=== PATIENT | female | born 1995 | race Caucasian/White ===

== ENCOUNTER 2021-12-29 11:59 | Outpatient (CLI) | payer OTHER, SELFPAY ==
--- NOTE | 2021-12-29 12:15 | CRLHL7_ITS ---
For Patients: As a result of the Century Cures Act, medical imaging exams and procedure reports are released immediately into your electronic medical record. You may view this report before your referring provider. If you have questions, please contact your health care provider. INDICATION: Dating and viability. TECHNIQUE: Ultrasound OB pelvis transabdominal and transvaginal. Real-time mcbride-scale imaging of the pelvis was performed. Color Doppler was performed on the ovaries with no spectral wave analysis. COMPARISON: None. FINDINGS: No definite gestational sac visualized. Possible 2.6 mm gestational sac in the endometrium which would correspond to 4 week 6 day gestational age. No identifiable pole or yolk sac. Endometrium measures 11 millimeters. No uterine masses. Right ovary measures 4.2 x 2.6 x 3.0 cm. Corpus luteum cyst on the right measuring 2.6 x 2.2 x 1.9 cm. Normal color flow. Left ovary measures 3.7 x 1.6 x 1.7 cm. Normal color flow. Mild pelvic free fluid. IMPRESSION: No definite intrauterine gestational sac. Questionable small intrauterine gestational sac visualized with no definite yolk sac or pole. The questionable gestational sac measures 2.6 mm which would correspond to 4 weeks 6 days. Recommend correlation with beta HCG and follow-up ultrasound if indicated. Right corpus luteum cyst. Mild nonspecific simple appearing pelvic free fluid. Dictated by Fransisco Vu MD @ 12/29/2021 2:22:00 PM (Electronically Signed)
== END 2021-12-29 12:00 | disposition home or self-care (01) ==
PROVIDERS: PCP Emergency Medicine; Visit Provider Registered Nurse
DX: Z34.91 Encounter for supervision of normal pregnancy, unspecified, first trimester (principal); Z3A.01 Less than 8 weeks gestation of pregnancy
CPT/HCPCS: 76817

== ENCOUNTER 2022-01-12 15:54 | Outpatient (CLI) | payer OTHER, SELFPAY ==
--- NOTE | 2022-01-12 16:00 | CRLHL7_ITS ---
For Patients: As a result of the Century Cures Act, medical imaging exams and procedure reports are released immediately into your electronic medical record. You may view this report before your referring provider. If you have questions, please contact your health care provider. INDICATION: Confirm dating and viability. First trimester scan, establish dates. COMPARISON: December 29, 2021. TECHNIQUE: Real-time mcbride-scale imaging of the pelvis was performed. FINDINGS: Sonographic imaging demonstrates a single living intrauterine gestation. The embryo demonstrates a regular cardiac rate measuring 126 beats per minute. The embryo`s crown-rump length measurement of 0.81 cm corresponds to a gestational age of 6 weeks 5 days with a sonographic due date of September 02, 2022. There is a normal-appearing yolk sac measuring 2.6 mm. There are no gross abnormalities noted within the embryo at this early state of development. The placenta has not yet developed. The gestational sac has a normal appearance. Trace perigestational/subchorionic hemorrhage inferior to the gestational sac measuring 13 x 7 x 18 mm. The amount of fluid within the sac appears appropriate for gestational age. The cervix is closed. The myometrium appears normal. The ovaries are of normal size. The right ovary measures 4.0 x 2.1 x 3.1 cm and contains a corpus luteum cyst of measuring 3.5 x 1.6 x 2.2 cm. The left ovary measures 3.4 x 1.7 x 2.2 cm. There are no suspicious fluid collections noted in the cul-de-sac. When compared to the prior study there has been interval maturation/progression with an intrauterine gestational sac as well as the visualization of a yolk sac and a pole. IMPRESSION: Normal first trimester OB ultrasound exam. Gestational age calculated at 6 weeks 5 days with a sonographic due date of September 02, 2022. Dictated by Eris Wilkinson MD @ 01/13/2022 9:03:12 AM (Electronically Signed)
== END 2022-01-12 15:55 | disposition home or self-care (01) ==
LOC: US 15:55
PROVIDERS: PCP Emergency Medicine; Visit Provider Registered Nurse
DX: Z34.91 Encounter for supervision of normal pregnancy, unspecified, first trimester (principal); Z3A.01 Less than 8 weeks gestation of pregnancy
CPT/HCPCS: 76817

== ENCOUNTER 2022-01-12 17:06 | Outpatient (CLI) | payer OTHER, SELFPAY ==
[2022-01-12 21:27] LABS: Hepatitis B Surface Antigen* Negative (Negative)
[2022-01-12 21:35] LABS: HIV 1/2/P24 Combo Screen* Negative (Negative)
[2022-01-12 21:44] LABS: Hepatitis C Virus Antibody* Negative (Negative)
[2022-01-12 22:39] LABS: Chlamydia DNA Amplified* NOT DETECTED (No Detected); GC DNA Amplified* NOT DETECTED (No Detected)
[2022-01-14 10:21] LABS: Rapid Plasma Reagin (RPR) Non Reactive (Non Reactive)
[2022-01-14 21:09] LABS: Rubella Antibody IgG 32.5 IU/mL
== END 2022-01-12 17:07 | disposition home or self-care (01) ==
PROVIDERS: Registered Nurse; PCP Emergency Medicine; Visit Provider Physician Assistant
DX: Z34.91 Encounter for supervision of normal pregnancy, unspecified, first trimester (principal); Z12.4 Encounter for screening for malignant neoplasm of cervix; Z3A.01 Less than 8 weeks gestation of pregnancy
CPT/HCPCS: 86592; 86703; 86762; 86787; 86803; 86850; 86900; 86901; 87086; 87340; 87491; 87591; 87624; 88175

== ENCOUNTER 2022-04-19 08:43 | Outpatient (CLI) | payer OTHER, SELFPAY ==
--- NOTE | 2022-04-19 08:45 | CRLHL7_ITS ---
For Patients: As a result of the Century Cures Act, medical imaging exams and procedure reports are released immediately into your electronic medical record. You may view this report before your referring provider. If you have questions, please contact your health care provider. INDICATION: Evaluate anatomy. COMPARISON: 01/12/2022 TECHNIQUE: Real time mcbride scale imaging of the fetus was performed as well as color Doppler analysis of the umbilical vessels. FINDINGS: Sonographic imaging demonstrates a single living intrauterine gestation. Fetus demonstrates a regular cardiac rate of 157 beats per minute. Fetus has a josh breech position. The placenta lies anteriorly without evidence of placenta previa. The edge of the placenta is located 5.6 cm from the internal cervical os. Amniotic fluid volume appears normal. Single deepest vertical pocket: 4.2 cm. The cervix is closed and measures 3.4 cm in length. The composite ultrasound gestational age is calculated at 21 weeks 3 days with an estimated sonographic due date of 08/27/2022. The estimated weight is 444 grams which lies at the greater than 97th %. The following biometric measurements were obtained: Biparietal diameter: 5.0 cm/21 weeks 2 days 84th% Head circumference: 19.1 cm/21 weeks 2 days 85th% Abdominal circumference: 16.9 cm/22 weeks 0 days 90th% Femur length: 3.6 cm/21 weeks 4 days 83rd% The HC/AC ratio measures: 1.13 range (1.06-1.24) On anatomic survey, there is a normal appearance of the cerebral ventricles, cavum septi pellucidi, cisterna magna and cerebellum. The nose, lips, and facial profile appear normal. The cervical, thoracic and lumbar spine are well visualized and appear normal. There is a normal four-chamber heart view and the left and right ventricular outflow tracts appear normal. The diaphragm and stomach appear normal. The bladder also appears normal. Bilateral renal pelviectasis noted measuring 4.1 millimeters and 4.6 millimeters. There is a normal three-vessel cord and cord insertion site. The four extremities appear normal. IMPRESSION: Sonographic gestational age 21 weeks 3 days and sonographic due date 08/27/2022. Sonographic age is 8 days ahead of the clinical age. Estimated weight greater than 97th percentile. Abdominal circumference 90th percentile. Mild bilateral pelviectasis measuring 4.1 millimeters and 4.6 millimeters. Follow-up in the 3rd trimester recommended. Remainder of the anatomic survey is normal. Dictated by Adrian Ferrer MD @ 04/19/2022 11:00:52 AM (Electronically Signed)
== END 2022-04-19 08:44 | disposition home or self-care (01) ==
LOC: US 08:43
PROVIDERS: PCP Emergency Medicine; Visit Provider Advanced Practice Midwife
DX: Z34.92 Encounter for supervision of normal pregnancy, unspecified, second trimester (principal); Z3A.21 21 weeks gestation of pregnancy
CPT/HCPCS: 76805

== ENCOUNTER 2022-06-10 09:50 | Outpatient (CLI) | payer OTHER, SELFPAY | END 2022-06-10 09:51 | disposition home or self-care (01) | LOC: NFLDREF 06-12 06:00 | PROVIDERS: PCP Emergency Medicine; Referring Provider Emergency Medicine; Visit Provider Advanced Practice Midwife | DX: Z34.92 Encounter for supervision of normal pregnancy, unspecified, second trimester (principal); Z3A.27 27 weeks gestation of pregnancy | CPT/HCPCS: 86592 ==

== ENCOUNTER 2022-07-08 09:14 | Outpatient (CLI) | payer OTHER, SELFPAY ==
--- NOTE | 2022-07-08 09:15 | CRLHL7_ITS ---
For Patients: As a result of the Century Cures Act, medical imaging exams and procedure reports are released immediately into your electronic medical record. You may view this report before your referring provider. If you have questions, please contact your health care provider. INDICATION: Third trimester scan, evaluate growth. mild bilateral pelviectasis COMPARISON: 04/19/2022 TECHNIQUE: Real time mcbride scale imaging of the fetus was performed. FINDINGS: Sonographic imaging demonstrates a single living intrauterine gestation. Fetus demonstrates a regular cardiac rate of 150 beats per minute. Fetus has a vertex position. The placenta lies anteriorly. Amniotic fluid volume appears normal and there is a single deepest vertical pocket: 4.8 cm. The estimated weight is 2301gm which lies at the 96th %. On the prior OB ultrasound exam dated 04/19/2022 the estimated weight was at the greater than 97th%. BPD greater than 97th percentile. HC 93rd percentile. AC greater than 97th percentile. FL 29th percentile. The HC/AC ratio measures 1.02 range (0.94-1.11). IMPRESSION: Right pelviectasis is present measuring 7.4 millimeters. Normal left kidney. Sonographic gestational age 34 weeks 0 days and sonographic due date 08/19/2022. Sonographic age 16 days ahead of the clinical age. Estimated weight 96th percentile. Abdominal circumference greater than 97th percentile. BPD greater than 97th percentile. Dictated by Adrian Ferrer MD @ 07/08/2022 11:00:06 AM (Electronically Signed)
== END 2022-07-08 09:15 | disposition home or self-care (01) ==
LOC: US 09:15
PROVIDERS: PCP Emergency Medicine; Visit Provider Advanced Practice Midwife
DX: O99.891 Other specified diseases and conditions complicating pregnancy (principal); N28.89 Other specified disorders of kidney and ureter; Z3A.34 34 weeks gestation of pregnancy
CPT/HCPCS: 76816

== ENCOUNTER 2022-08-11 15:00 | Outpatient (CLI) | payer OTHER, SELFPAY | END 2022-08-11 15:01 | disposition home or self-care (01) | LOC: NFLDREF 08-15 09:14 | PROVIDERS: PCP Emergency Medicine; Referring Provider Emergency Medicine; Visit Provider Advanced Practice Midwife | DX: Z34.03 Encounter for supervision of normal first pregnancy, third trimester (principal); Z3A.36 36 weeks gestation of pregnancy | CPT/HCPCS: 87081; 87653 ==

== ENCOUNTER 2022-09-02 16:50 | Inpatient (IN) | payer OTHER, SELFPAY ==
[2022-09-02] VITALS (25 sets, daily range): BP systolic 108–177; BP diastolic 59–103; PULSE 60–95; RESP 16–18; TEMP 36.4–37.8; O2SAT 87–100; BMI 29.6
[2022-09-02] MEDS: OXYTOCIN 10 UNIT/ML INJ IM (18:20)
[2022-09-02] MEDS: miSOPROStoL 800 MCG/4 TABLET PR (18:22)
[2022-09-02] MEDS: METHYLERGONOVINE MALEATE 0.2 MG/ML INJ IM (18:51)
[2022-09-02] MEDS: OXYTOCIN 30 unit/500 ML in NS 30 UNIT/500 ML BAG 300 UNIT IVPB (18:52)
[2022-09-02] MEDS: LACTATED RINGERS 1000 ML 1,000 ML 125 ML IV ×2 (18:52→22:18)
[2022-09-02 18:59] LABS: Basophils Percent Auto 0.1 % (0.0-3.0); Eosinophils Percent Auto 0.1 % (0.0-7.0); Hematocrit 41.5 % (33.0-51.0); Hemoglobin* 13.4 gm/dL (12.0-16.0); Lymphocytes Percent Auto 6.1 % (20-44); Mean Corpuscular HGB Conc 32 gm/dL (32-36); Mean Corpuscular Hemoglobin 28 pg (26-34); Mean Corpuscular Volume 85 fL (80-100); Monocytes Percent Auto 4.8 % (0.0-11.0); Neutrophils Percent Auto 86.9 % (42.0-72.0); Platelet Count* 163 K/uL (140-440); RDW Coefficient of Variation % 15.2 % (11.5-15.5); Red Blood Count 4.88 m/uL (4.00-5.20); White Blood Count* 16.37 K/uL (4.50-11.00)
[2022-09-02 19:01] LABS: Slide Review Reflex No
--- NOTE | 2022-09-02 19:19 | W.PM.LDBA ---
Subjective History of Present Illness Time Seen by Provider: 16:45 Date Seen: 09/02/22 Comments: Bhavana is being admitted to Labor and Delivery for active labor. She is a 27 year old G 1 P 0 at?39.5 weeks gestation. Her full history and physical was dictated by Yomaira Pillai on 08/18/22. Please see this for details. ? Bhavana states ctx started this morning, but were irregular and not intense. Noted to become more intense and regular around 1400. She arrived to L & D and was noted to be 6-7cm dilated, breathing through ctx. She is coping well with labor pain/contractions, but is considering nitrous or an epidural since the ctx are so strong. Initial plan was an unmedicated . Her partner AJ is with her for support. OB Problem List: , It's a Girl! H&P done 08/18/22 by Yomaira Pillai, CNM 1. History of asthma, requiring no medication for years 2. EFW >97%ile on Anatomy scan Discussed growth US in 3rd trimester if concerns with increasing fundal heights or weight gain Growth at 32 weeks: 95.5% 3. Mild bilateral pelviectasis measuring 4.1 millimeters and 4.6 millimeters. Follow-up US at 32 weeks: right kidney 7.4 mm, left normal 4. Anemia. Hgb 9.6 at 28 weeks. PO supplementation. Hgb 10.5 at 34 weeks. OB - Problem Based A/P Additional Plan (1) Active labor at term: Status: Acute Plan at 29.5 weeks GBS neg Active labor complications: -hx of asthma -Mild bilateral pelviectasis -Anemia Labor complications -EFW >97% 1. Admit to L & D for active labor 2. Does not need IV access unless she desires an epidural 3. Intermittent monitoring per policy, continuous if epidural placed. 4. Candidate for analgesia of choice. Planning unmedicated , but now considering nitrous or epidural. 5. Declines waterbirth 6. Expectant management at this time 7. Anticipate progress to NVD. Delivery/Labor/Induction Plan Plan: expectant management OB Exam Physical Exam Vital signs: Temp Pulse Resp BP Pulse Ox 98.5 F 76 18 140/75 H 100 09/02/22 18:58 09/02/22 18:55 09/02/22 18:58 09/02/22 18:55 09/02/22 19:03 Narrative: VSS, afebrile? General Appearance:? Calm, cooperative.? No acute distress.? Normal affect.? Psychiatric Exam: Alert and oriented, appropriate affect? HEENT: normocephalic, neck supple, full ROM? Respiratory:? Symmetrical chest wall movement.? Normal respiratory effort.? Clear to auscultation? Cardiac:? regular rate and rhythm? Abdomen: Gravid, non tender? Extremities:? normal and trace edema? Skin: warm, dry.??? Ctx:? Q 1-3 min apart.? ? Moderate?- Strong? FHTs:? Baseline: 135.? Variability: moderate.?? Accels: present.??? Decels:? none.? SVE: 6-7/80/-1 Membranes: intact? Detailed Labor and Delivery Exam Patient Gravid: Yes
--- NOTE | 2022-09-02 19:19 | W.PM.OBVAGDE ---
OB Procedure Vag Delivery Mother Details Mother Details: The patient is a 27 year-old, 1, Para 0, admitted on 09/02/22 at Days gestation. : 1 Para: 1 Weeks Gestation: 39.5 Admission Date: 09/02/22 Additional Details Amniotic Membrane Status: SROM Amniotic Membrane Rupture Date: 09/02/22 Amniotic Membrane Rupture Time: 17:33 Amniotic Membrane Fluid Description: Clear Analgesia/Anesthesia Type: Nitrous Oxide Waterbirth: No Pitcoin: No (Only given PP for AMTSL) Labor Onset: 11:00 Complete: 17:28 Pushin:30 Heart: heart tones during second stage were WNL per doppler Delivery Details Delivery Date: 09/02/22 Delivery Time: 18:18 Route of delivery: Gender: Female Infant Viability: Alive; Heart Rate Present Position at Delivery: OA Delivery Details: Bhavana arrived in active labor. Was questioning if she wanted an epidural or nitrous, but undecided at that time. Tried various positions to help with labor comfort. She was on hands and knees and felt like she needed to push. At that time noted to be 8 cm. She continued to labor, but did decide to proceed with an epidural. C/o of increased pressure again, and noted to be complete. Reviewed unable to place epidural at this time. She decided to proceed with nitrous during pushing. She decided to push on the stool, with her partner behind her for support. Good progress noted. Baby starting to crown, and one big push given and head delivered. At 1818 a viable? female infant delivered in vertex OA presentation over intact perineum via spontaneous vaginal?delivery. ? was placed on maternal abdomen. ?Large amount of bleeding noted while still on the stool, and not slowing. Bhavana assisted to the be for further assessment. Bleeding noted to be decreasing, but still brisk. Cord was clamped and cut shortly after to allow for further assessment. Delivery of placenta attempted, and placenta delivered easily at 1824.? ? Bleeding immediately slowed to WNL after delivery of placenta. weight pending. ? 9 at 1 minute and 9 at 5 minutes. ?Shoulder dystocia: no. ?Nuchal cord: no. Placenta delivered spontaneously and complete at 1824 with a 3 vessel cord. Mother and were stable after?delivery. Lacerations:? Deep laceration noted. Dr. Krishna called to bedside for further assessment, and decision made to proceed to OR for further assessment and repair since pt is currently unmedicated. Blood loss: 1280 mL, however, likely mixed with amniotic fluid from delivery. (Chux from stool weighed. 275 noted in delivery bag). Blood loss measurement type: ? QBL Sponge and needles counts are correct. 1 Minute Interval Total Score: 9 5 Minute Interval Total Score: 9 Additional Details Shoulder Dystocia: No Placenta Delivery Time: 18:24 Placental Delivery Description: Spontaneous Procedure Done: Global Blood Loss: 1,280 Blood Loss Measurement Type: QBL Bakri Used: No Sponge/Need Count Correct: Yes Cord Vessel Description: 3 Vessels Event Summary Status: Mother and infant were stable after delivery. Disposition: floor
[2022-09-02] MEDS: cefOXitin 2 GM in 0.9 % SODIUM CHLORIDE Mini-bag 100 ML IVPB (19:32)
[2022-09-02 19:53] LABS: Basophils Percent Auto 0.1 % (0.0-3.0); Eosinophils Percent Auto 0.1 % (0.0-7.0); Hematocrit 33.3 % (33.0-51.0); Hemoglobin* 11.1 gm/dL (12.0-16.0); Immature Granulocytes Pct Auto 0.5 %; Lymphocytes Percent Auto 5.3 % (20-44); Mean Corpuscular HGB Conc 33 gm/dL (32-36); Mean Corpuscular Hemoglobin 28 pg (26-34); Mean Corpuscular Volume 83 fL (80-100); Monocytes Percent Auto 3.8 % (0.0-11.0); Neutrophils Percent Auto 90.2 % (42.0-72.0); Platelet Count* 140 K/uL (140-440); White Blood Count* 14.65 K/uL (4.50-11.00)
[2022-09-02 20:05] LABS: INR 0.98 (0.91-1.10); Prothrombin Time 13.6 Seconds
[2022-09-02 20:06] LABS: Partial Thromboplastin Time* 27 Seconds (23-33)
[2022-09-02 20:07] LABS: Fibrinogen* 416 mg/dL (200-450)
[2022-09-02 20:20] LABS: Slide Review Reflex No
[2022-09-02] MEDS: ESTROGENS, CONJUGATED VAGINAL 0.625 MG/G CREAM 1 APPLIC VAGINAL (20:47)
[2022-09-02] MEDS: FERRIC SUBSULFATE 8 GM VIAL 1 VIAL TOPICAL (20:57)
[2022-09-02] MEDS: IBUPROFEN 600 MG TABLET PO (21:37)
--- NOTE | 2022-09-02 21:40 | P.ANES_ITS ---
Anesthesia Charges Start Date/Time Anesthesia Start Date: 09/02/22 Anesthesia Start Time: 19:11 Stop Date/Time Anesthesia Stop Date: 09/02/22 Anesthesia Stop Time: 21:22 Summary Emergency: [employer]
--- NOTE | 2022-09-02 22:44 | P.PCN_ITS ---
Procedure Note Time Seen by Provider: 18:30 Date Seen: 09/02/22 Date of procedure: 09/02/22 Will [facility] bill your pro fee for this procedure?: Yes Procedure Description: VAGINAL LACERATION REPAIR PREOPERATIVE DIAGNOSIS: 1. Hemorrhage 2. Obstetric anal sphincter injury ? POSTOPERATIVE DIAGNOSIS: 1. Hemorrhage 2. 4th degree laceration 3. Bilateral deep sulcal lacerations 4. Bilateral labial lacerations PROCEDURE: 1. EUA 2. Vaginal lacerations repair SURGEON: Bee Krishna MD [employer]RAFTSMAN: None ANESTHESIA: Spinal FINDINGS at time of EUA: Uterus firm 2 cm below the umbilicus upon arrival to the OR. cervix without laceration. Fourth degree laceration with brisk bleeding from multiple exposed arterial vessels. 4th degree laceration portion was approximately 2 cm. Bilateral deep sulcal lacerations and bilateral labial lacerations. ESTIMATED BLOOD LOSS: 1280 cc from delivery, 850 cc from OR URINE OUTPUT: 250 cc, garcia in place PACKING: Vaginal packing soaked with Premarin cream in place, tied to Garcia cath COMPLICATIONS: hemorrhage 2/2 to uterine atony and laceration repair. PREOP ANTIBIOTIC: 2g of cefoxitin ? SPECIMEN: None INDICATIONS: 27yo G 1 P 1001, with hemorrhage and 4th degree laceration. I was asked to assess the patient at 6:30 p.m. due hemorrhage and concern for OASIS after spontaneous vaginal delivery with CNM. Upon my arrival, it was reported that her QBL was approximately 1L. At the time, she had received 800 mcg of misoprostol and 10 u of IM Pitocin. I asked for IV placement and 30u of Pitocin bolus. Uterus intermittently boggy upon my exam. Patient had mild ranging BP during her and she does not have history of hypertension throughout . IM 0.2mg of methergine given x1. Patient was completely intolerant to vaginal assessment bedside as she did not have any neuraxial anesthesia. I recommended emergent EUA and vaginal laceration repair as she was have significant bleeding from her lacerations. She was consented and taken back to the OR. 2u of pRBC typed and crossed. DESCRIPTION OF PROCEDURE: The patient was taken to the operating room where she had spinal anaesthesia placed. She was prepared and draped in normal sterile fashion in the dorsal lithotomy position in yellow fins stirrups, taking care to avoid lower extremity hyperextension, hyperflexion or compression. A surgical time-out was performed with the entire operative staff per protocol. Perioperative antibiotics were given and pneumoboots were placed and activated. EUA revealed the above findings. Garcia catheter was placed. Perineum inspected and a 2cm 4th degree laceration was noted. Rectal exam performed to confirm tear and to assess for any other occult 4th degree portion. Complete avulsion of the internal and external anal sphincter noted. Operators? gloves changed attention was then turned to repair. Repair of the anal mucosa was performed 1st with a running 4-0 Monocryl stitch. After the anal mucosa was reapproximated, the internal anal sphincter was identified. The internal anal sphincter was repaired using a continuous running 3-0 PDS. After that, Allis clamps were used to grasp the laterally retracted fibers of the external anal sphincter and pulled toward midline. The external anal sphincter was repaired with 3 [id number] using 3-0 PDS in an overlapping manner. Before these were tied down multiple rectal exams were performed to ensure complete closure and good sphincter tone. Lpn Per Diem's gloves were changed after each rectal exam. Additional deep stitches with 2-0 vicryl were placed proximal to the sphincter to provide for a more substantial perineal body. The remainder of the tear was repaired as a typical 2nd degree laceration with a running 2-0 vicryl stitch. The bilateral sulcal and bilateral labial lacerations were repaired in a continuous running manner with 2-0 Vicryl. Multiple [id number] were placed for hemostasis as needed. Monsel's was applied to the posterior vaginal fourchette as tissue there was too friable for adequate hemostasis with suture ligation. After hemostasis was ensured, vaginal packing with Premarin cream was placed and tied to the garcia catheter. Both are to be removed after 12 hours. The patient tolerated the procedure well. Sponge, lap and needle counts were correct x 2. The patient was taken to the recovery room in stable condition. Following the repair, she was counseled on the procedure and precautions of an OASIS injury. Cefoxitin 2g Q6H for 24 hours. Strong bowel regimen ordered and instructions reviewed. Anesthesia: spinal
[2022-09-02 23:18] LABS: Basophils Percent Auto 0.1 % (0.0-3.0); Hematocrit 32.8 % (33.0-51.0); Hemoglobin* 11.1 gm/dL (12.0-16.0); Immature Granulocytes Pct Auto 0.9 %; Lymphocytes Percent Auto 5.7 % (20-44); Mean Corpuscular HGB Conc 34 gm/dL (32-36); Mean Corpuscular Hemoglobin 28 pg (26-34); Mean Corpuscular Volume 83 fL (80-100); Monocytes Percent Auto 4.3 % (0.0-11.0); Platelet Count* 152 K/uL (140-440); RDW Coefficient of Variation % 14.8 % (11.5-15.5); Red Blood Count 3.96 m/uL (4.00-5.20); White Blood Count* 16.42 K/uL (4.50-11.00)
[2022-09-02 23:22] LABS: Slide Review Reflex No
[2022-09-02] MEDS: DOCUSATE SODIUM 100 MG CAPSULE PO (23:51)
[2022-09-02] MEDS: ACETAMINOPHEN 500 MG TABLET 1000 MG PO (23:52)
[2022-09-03] VITALS: BP 121/75; PULSE 69; RESP 16; TEMP 37.1; O2SAT 100
[2022-09-03] MEDS: cefOXitin 2 GM in 0.9 % SODIUM CHLORIDE Mini-bag 100 ML IVPB ×3 (01:41→14:19)
[2022-09-03] MEDS: IBUPROFEN 600 MG TABLET PO ×4 (02:55→21:30)
[2022-09-03 05:24] VITALS: BP 108/67; PULSE 66; RESP 16; TEMP 37.1; O2SAT 97
[2022-09-03] MEDS: ACETAMINOPHEN 500 MG TABLET 1000 MG PO ×4 (05:46→23:58)
[2022-09-03 07:42] LABS: Hemoglobin* 9.2 gm/dL (12.0-16.0)
[2022-09-03 08:06] VITALS: BP 110/72; PULSE 66; RESP 16; TEMP 36.9; O2SAT 97
[2022-09-03] MEDS: DOCUSATE SODIUM 100 MG CAPSULE PO ×2 (08:56→21:30)
[2022-09-03] MEDS: SENNOSIDES 1 TAB TABLET PO (08:56)
--- NOTE | 2022-09-03 09:25 | P.OBPN_ITS ---
OB - PN:Subj Subjective Time Seen by Provider: 09:25 Date Seen: 09/03/22 Interval history: 27-year-old 1 para 1001, day #1 following spontaneous vaginal delivery complicated by 4th degree laceration. She underwent intraoperative repair the laceration last evening. A Seals catheter and vaginal packing were placed at the time of surgery. Patient comments OB post-: no complaints and perineal pain (Pressure, persistent but not severe) status: and doing well Narrative: The patient generally feels well. She describes some pressure in the vaginal area. She has not been up to ambulate. OB - PN: Obj Exam Physical Exam: Vital signs: Temp Pulse Resp BP Pulse Ox O2 Del Method 98.5 F 66 16 110/72 97 Room Air 09/03/22 08:06 09/03/22 08:06 09/03/22 08:06 09/03/22 08:06 09/03/22 08:06 09/03/22 08:06 Constitutional: Constitutional: no acute distress and average body habitus Routine Respiratory Exam: Comments: Normal respiratory effort. Routine Abdominal Exam: Abdominal: Present soft; Absent tenderness Fundus: Present firm Routine Exam: Groin: Absent erythema Comments: Seals catheter and vaginal packing removed. Repair intact. No active bleeding noted following removal of packing. No significant swelling. No hematoma. Routine Extremities Exam: Extremities: Absent calf tenderness or tenderness Urinary Catheter Management: Urethral: Cath placed during this visit: yes Urethral indwelling: No Reason for continuing: prolonged immobilization Insertion date: 09/02/22 Insertion time: 19:33 OB - PN: Obj Data Labs Labs: Laboratory Results - last 24 hr 09/02/22 09/02/22 09/02/22 18:40 19:44 23:10 WBC 16.37 H 14.65 H 16.42 H RBC 4.88 4.00 3.96 L Hgb 13.4 11.1 L 11.1 L Hct 41.5 33.3 32.8 L MCV 85 83 83 MCH 28 28 28 MCHC 32 33 34 RDW Coeff of Felisha 15.2 15.0 14.8 Plt Count 163 140 152 Neut % (Auto) 86.9 H 90.2 H 89.0 H Lymph % (Auto) 6.1 L 5.3 L 5.7 L Antelope % (Auto) 4.8 3.8 4.3 Eos % (Auto) 0.1 0.1 0.0 Baso % (Auto) 0.1 0.1 0.1 Neut # (Auto) 14.20 H 13.20 H 14.60 H Lymph # (Auto) 1.00 0.80 L 0.90 Antelope # (Auto) 0.80 0.60 0.70 Eos # (Auto) 0.00 0.00 0.00 Baso # (Auto) 0.00 0.00 0.00 INR 0.98 APTT 27 Fibrinogen 416 Blood Type O Positive Antibody Screen NEGATIVE Crossmatch ([facility]) See Detail 09/03/22 07:19 WBC RBC Hgb 9.2 L Hct MCV MCH MCHC RDW Coeff of Felisha Plt Count Neut % (Auto) Lymph % (Auto) Antelope % (Auto) Eos % (Auto) Baso % (Auto) Neut # (Auto) Lymph # (Auto) Antelope # (Auto) Eos # (Auto) Baso # (Auto) INR APTT Fibrinogen Blood Type Antibody Screen Crossmatch ([facility]) OB - PN: A/P Delivery Assessment and Plan (1) Status post vaginal delivery: Status: Acute (2) Fourth degree perineal laceration: Status: Acute Assessment and Plan: Vaginal packing removed today. Repair is intact. Discussed the need for good bowel regimen. Plan day: 1 Plan: routine care
[2022-09-03] MEDS: polyethylene glycoL 3350 17 GM PACK PO (10:24)
[2022-09-03 12:54] VITALS: BP 106/64; PULSE 66; RESP 16; TEMP 37; O2SAT 98
[2022-09-03 16:18] VITALS: BP 117/83; PULSE 73; RESP 16; TEMP 36.9; O2SAT 100
[2022-09-03 21:33] VITALS: BP 99/63; PULSE 70; RESP 16; TEMP 36.6; O2SAT 98
[2022-09-04 03:27] VITALS: BP 104/64; PULSE 61; RESP 16; TEMP 36.6; O2SAT 98
[2022-09-04] MEDS: IBUPROFEN 600 MG TABLET PO ×2 (03:29→09:18)
[2022-09-04] MEDS: ACETAMINOPHEN 500 MG TABLET 1000 MG PO (06:00)
[2022-09-04 08:01] VITALS: BP 109/71; PULSE 59; RESP 16; TEMP 36.4; O2SAT 98
--- NOTE | 2022-09-04 09:13 | PM.OBDSVD1 ---
DS: Providers Provider Date Seen: 09/04/22 Date of admission: 09/02/22 16:50 Primary care physician: Liz Lehman Admitting Clinician: Maidsyn Caceres CNM Attending Physician on discharge: Madisyn Caceres CNM Date of Discharge: 09/04/22 DS: Diagnosis Discharge Diagnosis (1) Fourth degree perineal laceration: Status: Acute (2) care following vaginal delivery: Status: Acute (3) Lactating mother: Status: Acute (4) Anemia: Status: Acute Exam Narrative: Exam Narrative: GENERAL APPEARANCE:? normal affect, alert, no distress? MOOD:? appropriate? CHEST:? clear to auscultation and percussion? HEART:? regular rate and rhythm? ABDOMEN:? soft, non-tender the uterine fundus is 2 cm Below Umbilicus, Midline and is appropriate for the stage of recovery. ? PERINEUM:? mild edema of the perineum, there is a 4th degree that is healing well.? EXTREMITIES:? normal and no edema? Patient has no complaints? No active bleeding?? Doing well? She is requesting discharge home.? Const: Vital Signs, click to edit/add: Vital Signs - 24 hr 09/03/22 12:54 09/03/22 16:18 09/03/22 21:33 Temperature 98.6 F 98.5 F 97.8 F Pulse Rate [Pulse Oximeter] 66 73 70 Respiratory Rate 16 16 16 Blood Pressure [Le ft Arm] 106/64 117/83 99/63 Pulse Oximetry 98 100 98 Oxygen Delivery Me thod Room Air Room Air Room Air 09/04/22 03:27 09/04/22 08:01 Temperature 97.8 F 97.5 F L Pulse Rate [Pulse Oximeter] 61 59 L Respiratory Rate 16 16 Blood Pressure [Le ft Arm] 104/64 109/71 Pulse Oximetry 98 98 Oxygen Delivery Me thod Room Air Room Air Documenting provider has reviewed patient's vital signs: yes OB - DS: Summary Hospital Course Hospital Course: Patient is a 27year old, G 1 now P 1? admitted on 09/02/22 at 39 Weeks, 5?Days gestation for active labor.? She had a vaginal delivery complicated by a 4th degree laceration with a hemorrhage.? She delivered a viable female infant.? She is breast feeding and reports things are well.? the patient has done well.? Her pain is well controlled with current medications.?Sh has not been taking narcotics for pain and denies the need for any on discharge. She has no new complaints.? Vitals have been stable. She has remained afebrile. She is voiding without difficulty. She is passing gas and has not had a bowel movement. She is a on a bowel regiment due to her 4th degree laceration. She is ambulating and denies any dizziness. She is considering mini pill for control but is uncertain.?She denies feeling lightheaded or dizzy and will be sent home with PO iron supplement.?? Peripartum Data delivery method: Vaginal Laceration description: Perineal - 4th Degree Episiotomy description: None Procedures: Procedures Operation Date: 09/02/22 19:25 Actual Procedure Side Surgeon p Vaginal Laceration Repair Bee Krishna MD complications: none [place] Infant Gender: Female Discharge Plan: Home Status at Discharge Functional status at discharge: independent ambulation Overall status at discharge: patient is progressing back to baseline Time Spent with Patient Time attestation: Total time spent providing and/or coordinating discharge services: Discharge Plan Discharge Disposition: Home, Self-Care Date of Admission: 09/02/22 16:50 Attending Provider on Discharge: Audrey Pillai Primary Care Provider: Liz Lehman Condition: Stable Anticipated Discharge Date/Time: 09/04/22 10:00 Discharge Medications: New docusate sodium 100 mg Capsule 100 mg PO BID Qty: 120 0RF ibuprofen 600 mg Tablet 600 mg PO Q6H Qty: 60 0RF polyethylene glycol 3350 [Miralax] 17 gram Powder In Packet 17 g PO DAILY Qty: 60 0RF Continued DHA 200 mg capsule 200 mg PO DAILY ferrous sulfate [FeroSul] 325 mg (65 mg iron) tablet 325 mg PO QDAY Discharge Orders: Discharge Order (Routine); Ordered 09/04/22 Ordered By: Audrey Pillai Additional Instructions: Discharge instructions were reviewed with the patient including signs and symptoms of infection and home going medications.? Lifting Restrictions: 20 pounds for 6? weeks? ?? Do not drive while taking narcotic pain meds.? Off Work or School for 6 weeks.? ?? Symptoms to report to doctor:? -Bleeding that saturates more than one pad per hour? -Passing clots larger than the size of a golf ball? -Pain not relieved by prescribed medication? -Fever above 100.4 degrees Fahrenheit? -A foul vaginal odor? -Difficulty in emotions, mood and functions? -Thoughts of hurting yourself and/or ? -Painful, reddened area in your breast? -Any drainage, redness or tenderness in your IV/epidural site? -Severe headache that doesn't improve after taking medications? -Changes in vision, including temporary loss of vision, blurred vision, and/or light sensitivity? -Upper abdominal pain (usually under ribs on the right side)? -Decrease in urination or painful, frequent urinating? -Chest pain? -Shortness of breath? -Tenderness or pain with redness and/swelling in the calf(s) of your leg? ?? Follow Up in clinic in 2 and 6 weeks.? ?? consultation services are available to all mothers and babies for the first year after delivery.? To make an appointment, please call [phone].? Activity Level: No strenuous activity Discharge Diet: Regular Follow Up Appointments: [facility] [Provider Group] Forms: MyHealth Info Instructions
[2022-09-04] MEDS: DOCUSATE SODIUM 100 MG CAPSULE PO (09:18)
[2022-09-04] MEDS: FERROUS SULFATE 325 MG TABLET PO (09:19)
[2022-09-04] MEDS: SENNOSIDES 1 TAB TABLET PO (09:19)
[2022-09-04] MEDS: polyethylene glycoL 3350 17 GM PACK PO (09:21)
== END 2022-09-04 10:40 | disposition home or self-care (01) | DRG 768 ==
LOC: OB OUT 16:50 → OB 16:50
PROVIDERS: Obstetrics & Gynecology; Admitting Provider Advanced Practice Midwife; PCP Emergency Medicine; Visit Provider Advanced Practice Midwife
PROC: 0UQG0ZZ Repair Vagina, Open Approach (ICD-10-PCS; principal; 2022-09-02 19:15)
DX: O99.02 Anemia complicating childbirth (principal); Z37.0 Single live birth; O72.1 Other immediate postpartum hemorrhage; O70.3 Fourth degree perineal laceration during delivery; D62 Acute posthemorrhagic anemia; O70.0 First degree perineal laceration during delivery; Z3A.39 39 weeks gestation of pregnancy
CPT/HCPCS: 00952; 36415; 85018; 85025; 85384; 85610; 85730; 86850; 86900; 86901; 86922; 88307; 99140; A9270; J0694; J1100; J2210; J2250; J2405; J2590; J2704; J3010; J7120

== ENCOUNTER 2022-09-23 22:39 | Emergency (ER) | payer OTHER, SELFPAY ==
[2022-09-23 22:56] VITALS: BP 125/63; PULSE 103; RESP 16; TEMP 37.2; O2SAT 98; BMI 25.8
[2022-09-23 23:04] LABS: Appearance Urine Clear (Clear); Bilirubin Urine Negative (Negative); Blood Urine 2+ (Negative); Color Urine Yellow (Yellow); Glucose Urine Negative (Negative); Ketones Urine Trace (Negative); Leukocyte Esterase Urine 1+ (Negative); Nitrite Urine Negative (Negative); Protein Urine 1+ (Negative); Urobilinogen Urine 0.2 (0.2-1.0)
[2022-09-23 23:26] LABS: Squamous Epithelial Cell Urine Few (None-Few)
[2022-09-23 23:27] LABS: Fine Granular Casts Urine Few
--- NOTE | 2022-09-23 23:30 | CRLHL7_ITS ---
For Patients: As a result of the Century Cures Act, medical imaging exams and procedure reports are released immediately into your electronic medical record. You may view this report before your referring provider. If you have questions, please contact your health care provider. INDICATION: Lower abdominal pain, post pr TECHNIQUE: CT abdomen and pelvis acquired with 100 cc Omnipaque 350 IV contrast. Permanently recorded images are archived. COMPARISON: None. FINDINGS: Lower chest: Unremarkable. Liver: Unremarkable. Normal in size and attenuation. No suspicious masses. Gallbladder and bile ducts: Unremarkable. No stones or inflammation. No biliary dilatation. Pancreas: Unremarkable. No mass or inflammation. Spleen: Unremarkable. Normal in size. No masses. Adrenal glands: Unremarkable. No nodules. Kidneys, Ureters, and Bladder: Unremarkable. No suspicious masses, stones, or hydronephrosis. Unremarkable ureters and bladder. GI tract: Prominent mural thickening of the cecum, ascending colon, and transverse colon with mild pericolonic inflammation, particularly about the ascending colon and cecum. No obstruction. The appendix is not clearly visualized. Vasculature: Abdominal aorta is normal in caliber. Mesenteric arteries are patent. Lymph nodes: No lymphadenopathy. Peritoneum/Abdominal Wall: Small amount of simple free fluid in the pelvis. No free air. Pelvis: Enlarged uterus, compatible with state. Bones: Unremarkable for age. IMPRESSION: Mural thickening of the cecum, ascending colon, transverse colon with mild pericolonic inflammation, compatible with colitis, likely on the basis of infectious or inflammatory process, to include inflammatory bowel disease such as Crohn`s disease. Enlarged uterus, compatible with state. Please note that all CT scans at this facility use dose modulation, iterative reconstruction, and/or weight-based dosing when appropriate to reduce radiation dose to as low as reasonably achievable. Dictated by Jesus Hansen MD @ 09/24/2022 12:42:21 AM (Electronically Signed)
--- NOTE | 2022-09-23 23:34 | ED_ITS ---
HPI - General Adult General Chief complaint: Fever Stated complaint: Post complication, tearing, black stool Time Seen by Provider: 09/23/22 23:15 Source: patient and family Mode of arrival: ambulatory Limitations: no limitations History of Present Illness HPI narrative: 27-year-old female 1 para 1 presents the emergency department not feeling well today. She has a history of a complicated vaginal delivery 3 weeks ago which included 4th degree perineal laceration. She did undergo closure in the operating room per her report. She reports that she did have some initial discomfort but her symptoms improved after the 1st week or so . She has still been using Tylenol and ibuprofen for general discomfort. But her stools did return to brown and smooth. Today, she awoke with a headache, feeling generally malaised with chills. She took some ibuprofen and her symptoms did temporarily improve. She was doing pretty well in the afternoon but then this evening after her late afternoon Tylenol and ibuprofen wore off, she started having chills again, feeling a little nauseated with lower abdominal cramping and tenderness. She has been having very loose stools with black and green color. No josh blood in her stools. No fever. No breast pain. She is without complication. Appetite is decreased this evening. No vomiting. No known sick contacts. No dysuria, no redness to the breast. No other localizing symptoms of infection. No prior history of abdominal surgeries. She states that her past medical history is otherwise benign. No long-term prescription medications. Nonsmoker with no pertinent travel. ROS is notable for the GI and generalized symptoms as above, otherwise denies times 12 systems. Related Data Home Medications Medication Instructions Recorded Confirmed docosahexaenoic acid 200 mg 200 mg PO DAILY 01/12/22 09/15/22 capsule ( DHA) ferrous sulfate 325 mg (65 mg 325 mg PO QDAY 07/08/22 09/15/22 iron) tablet (FeroSul) Previous Rx's Medication Instructions Recorded docusate sodium 100 mg capsule 100 mg PO BID #120 caps 09/04/22 ibuprofen 600 mg tablet 600 mg PO Q6H #60 tabs 09/04/22 polyethylene glycol 3350 17 gram 17 g PO DAILY #60 ea 09/04/22 oral powder packet (Miralax) Allergies Allergy/AdvReac Type Severity Reaction Status Date / Time No Known Drug Allergies Allergy Verified 09/24/22 00:08 [facility] Medical History Anemia ?D64.9 - Anemia, unspecified (ICD-10) Asthma ?J45.909 - Unspecified asthma, uncomplicated (ICD-10) Pes planus ?M21.40 - Flat foot [pes planus] (acquired), unspecified foot (ICD-10) Surgical History No history of previous surgery Family History Maternal Grandmother Breast cancer Heart disease Maternal Grandfather Parkinsons disease Family/Other High blood pressure Other Basal cell carcinoma Social History Narrative: School psychologist. . Nonsmoker. What is your current living situation?: I presently have a place to live Problems where you live: no known problems In the past 12 months, utilities in danger of being shut off: no In the past 12 mos, have been you worried that your food would run out before you had money to buy more?: never true In the past 12 mos, the food you bought just didn't last and you didn't have money to buy more?: never true Smoking Status: Never smoker How often does anyone, including family, friends and others, physically hurt you : never How often does anyone, including family, friends and others, insult or talk down to you: never How often does anyone, including family, friends and others, threaten you with harm: never How often does anyone, including family, friends and others, scream or curse at you: never Little interest or pleasure in doing things: not at all Feeling down, depressed, or hopeless: not at all Exam Const: Vital Signs, click to edit/add: Vital Signs - 24 hr 09/23/22 22:56 Temperature 98.9 F Pulse Rate [Left P ulse Oximeter] 103 H Respiratory Rate 16 Blood Pressure [Ri ght Upper Arm] 125/63 Pulse Oximetry 98 Oxygen Delivery Me thod Room Air Documenting provider has reviewed patient's vital signs: yes Common normals: no apparent distress General appearance: cooperative, comfortable and well kempt Other: Great historian. No signs of impairment HENMT: Common normals: normocephalic Head and scalp: normocephalic Face and sinus: normal facial exam Mouth: oral and palatal mucosa normal Throat: posterior oropharynx normal Eye: Common normals: conjunctivae normal General eye: normal appearance of both eyes Conjunctiva: conjunctiva(e) normal Neck & C-Spine: Common normals: full ROM and no lymphadenopathy Resp: Common normals: normal respiratory effort, no use of accessory muscles and clear to auscultation bilaterally Effort & inspection: able to speak in complete sentences Auscultation: clear to auscultation bilaterally Cardio: Common normals: regular rate, regular rhythm, S1 normal heart sound, S2 normal heart sound and no murmurs Rate: regular rate Rhythm: regular rhythm Heart sounds: S1 normal and S2 normal GI: Other: Bowel a little hyperactive. Abdomen appears nondistended. There is some mild tenderness to palpation in the suprapubic and left lower quadrant areas. No tenderness to palpation of the epigastrium or right upper quadrant. No mass. Uterus is firm, deep in the pelvis. No bogginess noted. Extremity: Common normals: normal to inspection, normal capillary refill and no pedal edema Neuro: Speech: speech normal Gait (neuro): normal gait Motor exam: no movement abnormalities noted Psych: Appearance: well kempt Attitude: engaged Mood and affect: euthymic mood Skin: Common normals: no rashes or lesions noted General skin exam: no rashes or lesions noted Course Course Hospital Course: Differential diagnosis including diverticulitis, appendicitis, gynecological infection, mastitis, gastroenteritis, gallbladder disease, inflammatory bowel disease, viral infection, among others. Tenderness and chills, especially with tachycardia and low-grade fever are certainly concerning especially with her history of 4th degree laceration. I would recommend basic labs, inflammatory markers and I would would like to do a CT scan of the abdomen and pelvis with contrast. Patient declines pain medication and nausea medication for now. Will bolus 1 L fluid. Reevaluation(s) Time of Reevaluation #1: 00:59 Reevaluation #1: Discussed lab and CT findings. Findings consistent with colitis. Cannot ne cessarily determine infectious verses immune mediated. Sudden onset and diarrhea without the presence of blood really is most likely infectious. Most likely this is viral but cannot exclude bacterial etiology. Will treat with azithromycin due to . Single Z-[place] style course. Prescription for Zofran given also in case nausea and vomiting developed. She should be markedly better in 5 days if not, would recommend further testing. Alarm symptoms extensively reviewed that would warrant repeat earlier evaluation. She verbalizes understanding and agreement. Okay to continue Tylenol and ibuprofen. All questions answered. Vital Signs Vital signs: Initial Vital Signs Temperature 98.9 F 09/23/22 22:56 Temperature Source Temporal Artery Scan 09/23/22 22:56 Pulse Rate 103 H 09/23/22 22:56 Pulse Rhythm Regular 09/23/22 22:56 Respiratory Rate 16 09/23/22 22:56 Blood Pressure 125/63 09/23/22 22:56 Blood Pressure Mean 83 09/23/22 22:56 Blood Pressure Position Sitting 09/23/22 22:56 Pulse Oximetry 98 09/23/22 22:56 Oxygen Delivery Method Room Air 09/23/22 22:56 Vital Signs Temperature 98.9 F 09/23/22 22:56 Pulse Rate 103 H 09/23/22 22:56 Respiratory Rate 16 09/23/22 22:56 Blood Pressure 125/63 09/23/22 22:56 Pulse Oximetry 98 09/23/22 22:56 Oxygen Delivery Method Room Air 09/23/22 22:56 Temperature 98.9 F 09/23/22 22:56 Pulse Rate 103 H 09/23/22 22:56 Respiratory Rate 16 09/23/22 22:56 Blood Pressure 125/63 09/23/22 22:56 Pulse Oximetry 98 09/23/22 22:56 Oxygen Delivery Method Room Air 09/23/22 22:56 Medical Decision Making Lab Data Lab results reviewed: Yes I reviewed the patient's lab results Lab results narrative: Elevated CRP but otherwise fairly reassuring. Labs: Lab Results 09/23/22 09/23/22 09/24/22 Range/Units 22:52 23:13 00:10 WBC 10.05 (4.50-11.00) K/uL RBC 4.48 (4.00-5.20) m/uL Hgb 12.2 (12.0-16.0) gm/dL Hct 37.5 (33.0-51.0) % MCV 84 (80-100) fL MCH 27 (26-34) pg MCHC 33 (32-36) gm/dL RDW Coeff of Felisha 13.6 (11.5-15.5) % Plt Count 296 (140-440) K/uL Neut % (Auto) 90.1 H (42.0-72.0) % Lymph % (Auto) 5.2 L (20-44) % [place] % (Auto) 4.3 (0.0-11.0) % Eos % (Auto) 0.0 (0.0-7.0) % Baso % (Auto) 0.1 (0.0-3.0) % Neut # (Auto) 9.10 H (1.7-7.0) K/uL Lymph # (Auto) 0.50 L (0.90-2.90) K/uL [place] # (Auto) 0.40 (0.00-0.90) K/UL Eos # (Auto) 0.00 (0.00-0.50) K/uL Baso # (Auto) 0.01 (0.00-0.30) K/uL Abs Immat Gran (auto) 0.03 (0.00-0.30) K/uL Imm/Tot Granulo (auto) 0.3 % Sodium 135 (135-149) mmol/L Potassium 3.1 L (3.6-5.1) mmol/L Chloride 102 (96-114) mmol/L Carbon Dioxide 21 (20-32) mmol/L BUN 13 (5-24) mg/dL Creatinine 0.7 (0.5-1.5) mg/dL Estimated Creat Clear 116.36 Estimated GFR 121 ml/min Glucose 103 (60-115) mg/dL Lactate 1.4 (0.5-1.9) mmol/L Calcium 8.9 (8.4-10.6) mg/dL Total Bilirubin 0.5 (0.1-1.5) mg/dL AST 29 (12-35) U/L ALT 27 (4-35) U/L Alkaline Phosphatase 93 (40-150) U/L C-Reactive Protein 6.9 H (0.5-1.0) mg/dL Total Protein 7.7 (6.0-8.3) g/dL Albumin 4.5 (3.3-5.0) g/dL Lipase 181 (23-300) U/L Urine Color Yellow (Yellow) Urine Appearance Clear (Clear) Urine pH 6.0 (5.0-8.5) Ur Specific [place] 1.010 (1.000-1.030) Urine Protein 1+ A (Negative) Urine Glucose (UA) Negative (Negative) Urine Ketones Trace A (Negative) Urine Blood 2+ A (Negative) Urine Nitrite Negative (Negative) Urine Bilirubin Negative (Negative) Urine Urobilinogen 0.2 (0.2-1.0) Ur Leukocyte Esterase 1+ A (Negative) Urine RBC 5-10 A (0-2) Urine WBC 2-5 (0-5) Ur Squamous Epith Cells Few (None-Few) Urine Bacteria None (None) Fine Granular Casts Few A (None) Imaging Data CT scan - abdomen: Attestation: I have reviewed the pertinent imaging results. My impression: General colitis Radiologist's impression: IMPRESSION: Mural thickening of the cecum, ascending colon, transverse colon with mild pericolonic inflammation, compatible with colitis, likely on the basis of infectious or inflammatory process, to include inflammatory bowel disease such as Crohn`s disease. Enlarged uterus, compatible with state. Discharge Plan Discharge Clinical Impression: Colitis Patient Disposition: Home w/ Parent or Adult Condition: Stable Instructions: Colitis (ED) Additional Instructions: As we discussed, your exam and CT are consistent with colitis. Colitis is inflammation or infection of the colon. Most likely this is caused by a viral infection. I cannot exclude a bacterial infection or potentially an autoimmune condition. They all look the same on CT scan. Your blood work is overall pretty reassuring. I would recommend a course of azithromycin, a common antibiotic used for infectious diarrhea. You will take 2 pills today, then 1 pill daily for days 2 through 5. This is safe with breast-feeding. You do not need to dump any pumped milk. For pain, continue Tylenol and ibuprofen as you are doing. As discussed, I would continue my stool softener but I would back off on my MiraLax for today and if your stools are still very loose, tomorrow also. I have prescribed a medication called ondansetron, also known as Zofran. Many people to get colitis also tend to get nausea and vomiting and you may take this if needed. Push fluids. Slowly advance her diet as tolerated. Not only is it okay to continue breast-feeding but it would be ideal in case this is infectious. You would pass antibodies through the breast milk to the baby to help protect her. As we discussed, I cannot exclude an autoimmune type of colitis like Crohn's disease or ulcerative colitis. This would be very unusual this soon as your immune system tends to be down regulated during . The sudden onset is also much more suspicious for infection. If you are not markedly better in 5 days, I would want you to come back to the emergency department for re-evaluation. As we discussed I would also want you to come back if you have fevers over 100.4, bright red bloody stools, severe weakness or any significant worsening in the interim. Activity Level: Activity as Tolerated Discharge Diet: Regular Prescriptions: No Action DHA 200 mg capsule 200 mg PO DAILY ferrous sulfate [FeroSul] 325 mg (65 mg iron) tablet 325 mg PO QDAY docusate sodium 100 mg Capsule 100 mg PO BID Qty: 120 0RF ibuprofen 600 mg Tablet 600 mg PO Q6H Qty: 60 0RF polyethylene glycol 3350 [Miralax] 17 gram Powder In Packet 17 g PO DAILY Qty: 60 0RF Follow Up/Referrals: Liz Lehman MD [Primary Care Provider] - Stand Alone Forms: [employer] Info Instructions
[2022-09-23 23:41] LABS: Basophils Absolute Auto 0.01 K/uL (0.00-0.30); Basophils Percent Auto 0.1 % (0.0-3.0); Hematocrit 37.5 % (33.0-51.0); Hemoglobin* 12.2 gm/dL (12.0-16.0); Immature Granulocytes Abs Auto 0.03 K/uL (0.00-0.30); Immature Granulocytes Pct Auto 0.3 %; Lymphocytes Percent Auto 5.2 % (20-44); Mean Corpuscular HGB Conc 33 gm/dL (32-36); Mean Corpuscular Hemoglobin 27 pg (26-34); Mean Corpuscular Volume 84 fL (80-100); Monocytes Percent Auto 4.3 % (0.0-11.0); Neutrophils Percent Auto 90.1 % (42.0-72.0); Platelet Count* 296 K/uL (140-440); RDW Coefficient of Variation % 13.6 % (11.5-15.5); Red Blood Count 4.48 m/uL (4.00-5.20); Slide Review Reflex No; White Blood Count* 10.05 K/uL (4.50-11.00)
[2022-09-24 00:08] LABS: Albumin* 4.5 g/dL (3.3-5.0); Chloride* 102 mmol/L (96-114); Sodium* 135 mmol/L (135-149)
[2022-09-24 00:09] LABS: Potassium* 3.1 mmol/L (3.6-5.1)
[2022-09-24 00:11] LABS: Alkaline Phosphatase* 93 U/L (40-150); Aspartate Amino Transferase* 29 U/L (12-35); Bilirubin Total* 0.5 mg/dL (0.1-1.5); Blood Urea Nitrogen* 13 mg/dL (5-24); Carbon Dioxide* 21 mmol/L (20-32); Creatinine* 0.7 mg/dL (0.5-1.5); Est. Creatinine Clearance* 116.36; Estimated Glomerular Filt Rate 121 ml/min; Lipase* 181 U/L (23-300); Total Protein* 7.7 g/dL (6.0-8.3)
[2022-09-24 00:12] LABS: Alanine Aminotransferase* 27 U/L (4-35); Calcium* 8.9 mg/dL (8.4-10.6); Glucose* 103 mg/dL (60-115)
[2022-09-24 00:14] LABS: C Reactive Protein* 6.9 mg/dL (0.5-1.0)
[2022-09-24 00:18] LABS: Lactate* 1.4 mmol/L (0.5-1.9)
[2022-09-24] MEDS: 0.9 % SODIUM CHLORIDE 1000 ml 1,000 ML IV (00:19)
[2022-09-24 01:15] VITALS: BP 118/69; PULSE 81; RESP 16; TEMP 37.2; O2SAT 98
== END 2022-09-24 01:17 | disposition home or self-care (01) ==
PROVIDERS: Emergency Provider Family Medicine; PCP Emergency Medicine
DX: K52.9 Noninfective gastroenteritis and colitis, unspecified (principal)
CPT/HCPCS: 36415; 74177; 80053; 81003; 81015; 83605; 83690; 85025; 86140; 99283; 99284; J7030; Q9967